=== PATIENT | female | born 1980 | race Caucasian/White ===

== ENCOUNTER → 2017-08-06 | Outpatient (CLI) | payer MEDICARE, MEDICAID ==
[~2017-08-06] MED LIST: AMITIZA8 MCG PO; ASPIRIN 81MG TA81 MG PO; ATIVAN0.5 MG PO; ATIVAN1 MG OR; CLONAZEPAM 1MG T1 MG PO; DIGOXIN0.25 MG PO; FLEXERIL10 MG PO; FUROSEMIDE80 MG PO; GENTAMICIN O5 ML/BOT OP; KLONOPIN1 MG PO; LEVOTHYROXIN0.175 MG PO; MEDROL 4MG. DOSE4 MG PO; METFORMIN1000 MG PO; NITROFURANTOIN100 M2 PO; POTASSIUM CHLO20 ME2 PO; PROTONIX 40MG T40 MG PO; SPIRIVA HA1 PUFF/INH IH; ULTRAM 50 MG TA50 MG PO
--- NOTE | 2017-08-06 14:45 | RADIOLOGY REPORT PS360 ---
US PELVIS-TRANSVAGINAL ONLY HISTORY: ABD PAIN, AMENORRHEA ORDERING PHYSICIAN: Radha Lee APRN PATIENT AGE: 36 years COMPARISON: None FINDINGS: Uterus measures 7.4 x 3.6 x 4.5 cm with a combined endometrial thickness of 6 mm. Nabothian cysts are present. No uterine mass apparent. Right ovary is 3.7 x 2 cm and contains a 1.7 cm cyst. The left ovary is 3.4 x 2.4 cm and contains a 2.9 cm cyst. A small amount fluid is present along the fundus of the uterus. IMPRESSION: 1. Bilateral ovarian cysts 1.7 cm on the right and 2.9 cm on the left 2. small amount fluid along the fundus the uterus. 3. Otherwise negative pelvic ultrasound
--- NOTE | 2017-08-06 14:57 | RADIOLOGY REPORT PS360 ---
US ABD(COMPLETE-MULTI ORGANS HISTORY: Abdominal pain with nausea ABD PAIN, DM II ORDERING PHYSICIAN: Radha Lee APRN PATIENT AGE: 36 years COMPARISON: None FINDINGS: PANCREAS:Unremarkable. No obvious mass or abnormal fluid collection. No ductal dilatation LIVER:No focal liver lesions demonstrated. Homogeneous echogenicity. No intrahepatic biliary ductal dilatation evident RIGHT KIDNEY:Unremarkable. Normal size and echogenicity. No hydronephrosis LEFT KIDNEY:Unremarkable. No hydronephrosis. Normal size and echogenicity. GALLBLADDER:Cholecystectomy. No biliary dilatation AORTA:No evidence of aneurysmal dilatation. SPLEEN:Splenomegaly at 15 cm ASCITES:None demonstrated. IMPRESSION: Splenomegaly otherwise negative abdominal ultrasound Status post cholecystectomy
== END ==
LOC: RAD 09:52
DX: R10.84 Generalized abdominal pain (principal); I50.42 Chronic combined systolic (congestive) and diastolic (congestive) heart failure; E11.29 Type 2 diabetes mellitus with other diabetic kidney complication; N91.2 Amenorrhea, unspecified

== ENCOUNTER → 2017-08-14 | Outpatient (CLI) | payer MEDICARE, MEDICAID ==
--- NOTE | 2017-08-15 05:34 | RADIOLOGY REPORT PS360 ---
CT ABD PELVIS W/O CONTRAST CLINICAL INDICATION: Elevated liver enzymes with splenomegaly and left-sided pain SPIENOMEGALY,ELEVATED LIVER ENZYMES ORDERING PHYSICIAN: Radha Lee APRN PATIENT AGE: 36 years COMPARISON: 06/09/2016 TECHNIQUE: Axial images obtained with sagittal and coronal reformats. PROCEDURE: Oral Contrast: None IV Contrast: None . FINDINGS: Lung base images show prominence of the right lower lobe pulmonary arteries and veins. Study is somewhat limited without IV contrast. There is a small amount of perihepatic fluid anteriorly with hepato megaly measuring 26 cm in maximum transverse dimension. Spleen is enlarged at 15 cm. There has been a prior cholecystectomy. There is diffuse subcutaneous edema. The adrenal glands and pancreas are unremarkable. No renal calculi or hydronephrosis. No ureteral calculi. No intestinal obstruction or free air. There has been a prior appendectomy. Small amount fluid is present in right adnexal region. There are surgical clips in the lower pelvis between the urinary bladder and the anterior aspect of the uterus. Scattered small lymph nodes are present within the mesentery's and retroperitoneum. No acute bony anomalies. There is a small supraumbilical hernia containing fat IMPRESSION: 1. Hepatosplenomegaly. There is a small amount of perihepatic fluid and there is mild diffuse subcutaneous edema. 2. No acute intra-abdominal or pelvic pathology.
== END ==
LOC: RAD 08:24
DX: R16.1 Splenomegaly, not elsewhere classified (principal); R74.8 Abnormal levels of other serum enzymes